=== PATIENT | female | born 2000 | race Native Hawaiian/Other Pacific Islander ===

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

== ENCOUNTER → 2023-07-01 | Outpatient (CLI) | payer BC ==
--- NOTE | 2023-07-01 14:10 | P.GSHP ---
History of Present Illness H&P Date: 07/01/23 Chief Complaint: Right breast mass Carolann is a 22-year-old female seen in consultation for Dr. Martin regarding a right breast mass. She had an ultrasound of the right breast performed on which revealed a 1.7 cm bilobed nodule with ill-defined margins at the 12 o'clock position of the right breast. Noticed the lump approximately a month ago. It has not changed in size. It is not painful. She has not had any trauma or infection in the breast. She's never had any surgery on her breasts. The patient has lost 10 pounds recently, this was not an intentional weight loss. Caffeine: none nicotine: none chocolate: occasional BCP: none; is not sexually active Family History: maternal great grandmother: bladder cancer Hormonal History: menarche: 15 not sexually active BCP: none. hormones: none Surgical History: none Medical History: anxiety History: Nicotine: Negative Alcohol: none Drugs: none - Constitutional Constitutional: Denies chills, Denies fever - EENT Eyes: denies blurred vision, denies pain Ears: deny: decreased hearing, tinnitus Ears, nose, mouth and throat: Denies headache, Denies sore throat - Breasts Breasts: bilateral: as per HPI - Cardiovascular Cardiovascular: Denies chest pain, Denies shortness of breath - Respiratory Respiratory: Denies cough, Denies 7 - Gastrointestinal Gastrointestinal: Denies abdominal pain, Denies diarrhea, Denies nausea, Denies vomiting - Genitourinary (Female) Genitourinary: Denies dysuria, Denies hematuria - Menstruation Comment: LMP 1 week ago Menstruation: Reports period normal - Musculoskeletal Musculoskeletal: Denies myalgias - Integumentary Integumentary: Denies pruritus, Denies rash - Neurological Neurological: Denies numbness, Denies weakness - Psychiatric Psychiatric: Reports anxiety, Reports depression - Endocrine Endocrine: Reports fatigue, Reports weight change - Hematologic/Lymphatic Comment: none - Allergic/Immunologic Allergic/Immunologic: Reports seasonal allergies Past Medical History Past Medical History: No Reported History History of Any Multi-Drug Resistant Organisms: None Reported Past Surgical History: No Surgical Hx Reported Past Psychological History: No Psychological Hx Reported Past Alcohol Use History: None Reported Past Drug Use History: None Reported Medications and Allergies Home Medications Medication Instructions Recorded Confirmed Type No Known Home Medications 06/21/18 06/21/18 History Allergies Allergy/AdvReac Type Severity Reaction Status Date / Time No Known Allergies Allergy Verified 06/21/18 23:13 Surgical - Exam - General no distress - Eyes normal ocular movement - Neck trachea midline - Respiratory normal respiratory effort, clear to auscultation - Cardiovascular Rhythm: regular Heart Sounds: normal: S1, S2 - Abdomen Abdomen: soft, non tender, no guarding, no rigid, no rebound - Integumentary normal turgor - Neurologic no disoriented, no combative - Musculoskeletal normal gait - Psychiatric oriented to time, oriented to person, oriented to place, speech is normal, memory intact Breast Exam: BRA: 32A Inspection: Bilateral grade 1 ptosis Palpation: Right breast: Multi positional exam approximately 2 cm area of nodularity at the 12 to 1 o'clock position, no other dominant masses or nodules of concern, very dense breast tissue Right axilla: Shotty adenopathy Left breast: Multiple positional exam dense breast tissue no dominant masses or nodules of concern Left axilla: No adenopathy of concern Results Ultrasound results reviewed, 1.7 cm bilobed nodule in the right breast Assessment and Plan Assessment: Impression: Dense fibroglandular breast tissue Nodule right breast most likely fibroadenoma Plan: Ultrasound-guided core biopsy lesion right breast Follow up after ultrasound core biopsy Risks and benefits of the procedure discussed with the patient and her mother. Risks include but are not limited to bleeding, infection, reaction to the anesthetic. CC: Dr. Martin
[2023-07-01 15:03] VITALS: BP 125/58; PULSE 67; RESP 18; TEMP 98.3
== END ==
LOC: WWCWWP 12:48
PROVIDERS: ATTEND Surgery
DX: N63.15 Unspecified lump in the right breast, overlapping quadrants (principal); D24.1 Benign neoplasm of right breast

== ENCOUNTER → 2023-07-20 | Day surgery (SDC) | payer BC | LOC: RADUSWWP 12:55 | PROVIDERS: ATTEND Surgery | DX: D24.1 Benign neoplasm of right breast (principal) | CPT/HCPCS: 19083; A4648; 88305 ==

== ENCOUNTER → 2023-08-05 | Outpatient (CLI) | payer BC ==
--- NOTE | 2023-08-05 13:04 | P.PN ---
Subjective Progress Note Date: 08/05/23 Principal diagnosis: fibroadenoma right breast Carolann is a 22-year-old female seen in consultation for Dr. Martin regarding a right breast mass. She had an ultrasound of the right breast performed on which revealed a 1.7 cm bilobed nodule with ill-defined margins at the 12 o'clock position of the right breast. Noticed the lump approximately a month ago. It has not changed in size. It is not painful. She has not had any trauma or infection in the breast. She's never had any surgery on her breasts. The patient has lost 10 pounds recently, this was not an intentional weight loss. She underwent a core biopsy of the right breast on 07-20-23 which was consistent with a fibroadenoma. She tolerated the biopsy without difficulty. Caffeine: none nicotine: none chocolate: occasional BCP: none; is not sexually active Family History: maternal great grandmother: bladder cancer Hormonal History: menarche: 15 not sexually active BCP: none. hormones: none Surgical History: none Medical History: anxiety History: Nicotine: Negative Alcohol: none Drugs: none - Constitutional Constitutional: Denies chills, Denies fever - EENT Eyes: denies blurred vision, denies pain Ears: deny: decreased hearing, tinnitus Ears, nose, mouth and throat: Denies headache, Denies sore throat - Breasts Breasts: bilateral: as per HPI - Cardiovascular Cardiovascular: Denies chest pain, Denies shortness of breath - Respiratory Respiratory: Denies cough - Gastrointestinal Gastrointestinal: Denies abdominal pain, Denies diarrhea, Denies nausea, Denies vomiting - Genitourinary (Female) Genitourinary: Denies dysuria, Denies hematuria - Menstruation Comment: LMP 1 week ago Menstruation: Reports period normal - Musculoskeletal Musculoskeletal: Denies myalgias - Integumentary Integumentary: Denies pruritus, Denies rash - Neurological Neurological: Denies numbness, Denies weakness - Psychiatric Psychiatric: Reports anxiety, Reports depression - Endocrine Endocrine: Reports fatigue, Reports weight change - Hematologic/Lymphatic Comment: none - Allergic/Immunologic Allergic/Immunologic: Reports seasonal allergies Past Medical History Past Medical History: No Reported History History of Any Multi-Drug Resistant Organisms: None Reported Past Surgical History: No Surgical Hx Reported Past Psychological History: No Psychological Hx Reported Past Alcohol Use History: None Reported Past Drug Use History: None Reported Medications and Allergies Home Medications Medication Instructions Recorded Confirmed Type No Known Home Medications 06/21/18 06/21/18 History Allergies Allergy/AdvReac Type Severity Reaction Status Date / Time No Known Allergies Allergy Verified 06/21/18 23:13 Objective - Constitutional General appearance: Present: cooperative - EENT Eyes: Present: EOMI ENT: Present: hearing grossly normal - Neck Neck: Present: normal ROM - Respiratory Respiratory: bilateral: CTA - Cardiovascular Heart sounds: normal: S1, S2 - Integumentary Integumentary Comment(s): biopsy site right breast clean and dry, no evidence of infection or hematoma Integumentary: Present: normal turgor - Musculoskeletal Musculoskeletal: Present: gait normal - Psychiatric Psychiatric: Present: A&O x's 3, appropriate affect, intact judgment & insight Assessment and Plan Assessment: Impression: Dense fibroglandular breast tissue Nodule right breast (+) fibroadenoma Plan: Ultrasound-guided core biopsy lesion right breast/ [id number] pathology fibroadenoma Resection fibroadenoma right breast in the operating room, possible right breast onco-plastic tissue transfer Risks and benefits of the procedure discussed with the patient and her mother. Risks include but are not limited to bleeding, infection, reaction to the anesthetic. CC: Dr. Martin
== END ==
LOC: WWCWWP 12:06
PROVIDERS: ATTEND Surgery
DX: D24.1 Benign neoplasm of right breast (principal); N60.21 Fibroadenosis of right breast; F12.90 Cannabis use, unspecified, uncomplicated

== ENCOUNTER → 2023-08-31 | Day surgery (SDC) | payer BC ==
[2023-08-25 11:56] VITALS: BMI 14.6
[~2023-08-31] MED LIST: ALPRAZolam 0.5 MG TAB ONE; GLYCOPYRROLATE 0.2 MG/ML 2 ML VIAL ONE; HYDROmorphone 0.5 MG/0.5 ML SYRINGE IVP PRN; LACTATED RINGERS 1,000 ML IV SCH; LIDOCAINE 1% (10MG/ML) FOR IV START INTRADERMA PRN; LIDOCAINE 1% INJ 10MG/ML (20 ML MDV) ONE; MIDAZOLAM 2 MG/2 ML VIAL ONE; NEOSTIGMINE 1 MG/ML 10 ML VIAL ONE; PROPOFOL 10 MG/ML 20 ML VIAL IV ONE; ROCURONIUM 10 MG/ML (5 ML VIAL) IV ONE; SCOPOLAMINE 1 MG/72 HR PATCH TRANSDERM ONE; droPERidol 5 MG/2 ML VIAL IVP ONE; fentaNYL (PF) 50 MCG/ML 2 ML AMP ONE
[2023-08-31] MEDS: ALPRAZolam 0.5 MG TAB PO ONE (12:33)
[2023-08-31] MEDS: LACTATED RINGERS 1,000 ML IV ONE ×3 (12:34→16:00)
[2023-08-31] MEDS: LIDOCAINE 1% INJ 10MG/ML (20 ML MDV) SQ ONE ×3 (13:15→14:51)
[2023-08-31] MEDS: ONDANSETRON 4 MG/2 ML VIAL IVP ONE (13:34)
[2023-08-31] MEDS: DEXAMETHASONE SOD PHOSPHATE 4 MG/ML 1 ML VIAL IV ONE (13:34)
[2023-08-31] MEDS: HEPARIN SODIUM,PORCINE 5,000 UNIT/ML 1 ML VIAL SQ PRN (13:54)
--- NOTE | 2023-08-31 15:13 | P.OP ---
Date of Procedure: 08/31/23 Preoperative Diagnosis: Fibroadenoma right breast Postoperative Diagnosis: Same Procedure(s) Performed: Removal fibroadenoma right breast after needle localization/magnetic seed localization Anesthesia: WAYNE Surgeon: Lexus Goldman Estimated Blood Loss (ml): 5 IV fluids (ml): 800 Pathology: other (Breast tissue) Condition: stable Disposition: same day Indications for Procedure: Symptomatic fibroadenoma right breast Operative Findings: Very dense breast tissue Description of Procedure: The patient is a 22-year-old white female with symptomatic biopsy-proven fibroadenoma in the right breast. She wished this to be excised. Following needle localization and Magseed localization of the area she was brought to the operative suite. Following induction of anesthesia the right breast was prepped and draped in a sterile fashion. An incision was made over the palpable mass. Dissection was performed down that the Magseed was located and as well as the wire and palpable area were excised. This was approximately 2 cm x 1 cm. The specimen was painted for orientation. Radiograph of the specimen revealed the wire and the Magseed but not the original clip at the time of the biopsy. This was discussed with Dr. Jimmie Gaytan and he felt that the area had been adequately removed however the clip may have dropped out of the specimen. The wound was examined for hemostasis. It was well-irrigated. After we are sure that hemostasis was attained titanium clips were placed. The deep tissues were closed using 3-0 Vicryl suture. The skin was closed using 3-0 Vicryl suture in the subcutaneous tissue and 4-0 Monocryl in the subcuticular tissue. Surgical glue was applied. The patient tolerated the procedure in stable condition. All instrument and sponge counts were correct at the end of the case.
[2023-08-31 16:00] VITALS: TEMP 97
[2023-08-31 16:28] VITALS: RESP 16
[2023-08-31 16:55] VITALS: BP 128/63; PULSE 72
== END | disposition home or self-care (01) ==
LOC: OR 11:45
PROVIDERS: ATTEND Surgery
DX: D24.1 Benign neoplasm of right breast (principal); F41.9 Anxiety disorder, unspecified; J30.2 Other seasonal allergic rhinitis; Z79.899 Other long term (current) drug therapy; Z85.51 Personal history of malignant neoplasm of bladder
CPT/HCPCS: 19285; 19125; 81025; 88307; 76098; C1819; J2250; J1644; J1100; J2710; J2405; J0690; J2001; J3010; J2704

== ENCOUNTER → 2023-09-10 | Outpatient (CLI) | payer BC ==
[2023-09-10 12:31] VITALS: BP 117/85; PULSE 71; RESP 14; TEMP 98.4
--- NOTE | 2023-09-10 12:54 | P.PN ---
Progress Note - Text Progress Note Date: 09/10/23 Carolann is a 22 year old status post resection of a right breast fibroadenoma on 08-31-23. Her margins were (+). Done well postoperatively. Examination: Lungs: Clear Heart: Regular rate and rhythm Incision: Clean and dry Impression: Patient's status post resection of right breast fibroadenoma 08-31-2023 margins positive Plan: Close surveillance Repeat right breast ultrasound in 6 months with examination at that time CC: Dr. Martin
== END ==
LOC: WWCWWP 11:43
PROVIDERS: ATTEND Surgery
DX: Z09 Encounter for follow-up examination after completed treatment for conditions other than malignant neoplasm (principal); Z86.018 Personal history of other benign neoplasm; Z98.890 Other specified postprocedural states